=== PATIENT | male | born 1985 | race Caucasian/White ===

== ENCOUNTER 2016-10-26 19:25 | Emergency (ER) | payer BC ==
[~2016-10-26] VITALS: Ht 182.9 cm; Wt 95.5 kg
[2016-10-26 19:31] VITALS: TEMP 97.8
[2016-10-26] MEDS ORDERED: PERCOCET 325 MG1 TA2 PO (20:29)
[2016-10-26] MEDS ORDERED: ULTRAM 50MG TAB50 MG PO (20:29)
[2016-10-26 21:17] VITALS: BP 142/86; PULSE 68
== END 2016-10-26 21:22 | disposition home or self-care (01) ==
LOC: COL.ER 19:25
DX: S43.005A Unspecified dislocation of left shoulder joint, initial encounter (principal); F12.90 Cannabis use, unspecified, uncomplicated; X50.1XXA Overexertion from prolonged static or awkward postures, initial encounter; Y92.009 Unspecified place in unspecified non-institutional (private) residence as the place of occurrence of the external cause
CPT/HCPCS: J2405; J2704

== ENCOUNTER → 2016-11-15 | Outpatient (CLI) | payer BC ==
[~2016-11-15] MED LIST: PERCOCET 325 MG1 TA2 PO; ULTRAM 50MG TAB50 MG PO
== END ==
LOC: COL.RAD 09:07
DX: M25.812 Other specified joint disorders, left shoulder (principal); S43.085S Other dislocation of left shoulder joint, sequela; S46.812S Strain of other muscles, fascia and tendons at shoulder and upper arm level, left arm, sequela; X58.XXXS Exposure to other specified factors, sequela
CPT/HCPCS: A9585; Q9967

== ENCOUNTER → 2020-01-25 | Outpatient (CLI) | payer BC | LOC: ZLAB.KSTAT 16:43 | DX: Z20.828 Contact with and (suspected) exposure to other viral communicable diseases (principal) ==